=== PATIENT | female | born 1985 | race Caucasian/White ===

== ENCOUNTER 2018-01-18 20:46 | Emergency (ER) | payer SELFPAY ==
[~2018-01-18] VITALS: Ht 165.1 cm; Wt 83.0 kg
== END 2018-01-19 00:45 | disposition home or self-care (01) ==
LOC: ED 20:46
DX: G43.A0 Cyclical vomiting, in migraine, not intractable (principal)
CPT/HCPCS: 80053; 81001; 83690; 84703; 85025; 96374; 96375; 99283; J2060; J2405; J2550; J7030

== ENCOUNTER 2018-02-24 08:59 | Emergency (ER) | payer SELFPAY ==
[~2018-02-24] VITALS: Ht 165.1 cm; Wt 83.0 kg
[2018-02-24] MEDS ORDERED: PROMETHAZINE HC25 M1 PO (09:11)
[2018-02-24] MEDS ORDERED: PHENERGAN25 MG (09:11)
[2018-02-24] MEDS ORDERED: ZOFRAN ODT8 MG PO (10:31)
== END 2018-02-24 11:34 | disposition home or self-care (01) ==
LOC: ED 08:59
DX: R11.2 Nausea with vomiting, unspecified (principal)
CPT/HCPCS: 80053; 81001; 83690; 84703; 85025; 96361; 96374; 96375; 99283; J1200; J2060; J2405; J7030

== ENCOUNTER 2024-10-09 04:15 | Emergency (ER) | payer OTHER ==
[~2024-10-09] VITALS: Ht 165.1 cm; Wt 102.0 kg
[~2024-10-09 04:15] MED LIST: PHENERGAN25 MG; PROMETHAZINE HC25 M1 PO; ZOFRAN ODT8 MG PO
[2024-10-09] MEDS ORDERED: FAMOTIDINE 20 MG/ 2 ML VIAL IV ONE (04:30)
[2024-10-09] MEDS ORDERED: LACTATED RINGER'S 1,000 ML IV ONE (04:30)
[2024-10-09] MEDS ORDERED: droPERidol 5 MG/2 ML VIAL IV ONE (04:30)
[2024-10-09 04:38] LABS: BASOPHILS 0.5 % (0-2); EOSINOPHILS 0.3 % (0-6); HEMATOCRIT 47.4 % (35.0-50.0); HEMOGLOBIN 15.9 g/dL (12.0-18.0); LYMPHOCYTES 12.7 % (24-44); MCH 29.5 (27-36); MCHC 33.5 g/dl (30-36); MCV 88.1 fl (81-99); MONOCYTES 5.1 % (0-12); NEUTROPHILS 81.4 % (39-80); PLATELET COUNT 332 K/uL (140-440); RBC 5.39 M/ul (4.3-5.7); RDW 13.1 (10.5-15.0)
[2024-10-09 04:58] LABS: ALBUMIN 4.5 g/dL (3.4-5.0); ALCOHOL, MEDICAL <3 ng/dL (<3); ALKALINE PHOSPHATASE 49 U/L (46-116); ALT (SGPT) 17 U/L (14-59); ANION GAP 17.2 (7-21); AST (SGOT) 15 U/L (15-37); BILIRUBIN, TOTAL 0.7 ng/dL (0.2-1.0); BUN/CREATININE RATIO 15.59 (6.0-28.6); CALCIUM 10.1 mg/dL (8.5-10.1); CARBON DIOXIDE 28 mmol/L (21-32); CHLORIDE 97 mmol/L (98-107); CREATININE, SERUM 1.09 mg/dL (0.55-1.02); GLOMERULAR FILTRATION RATE,EST 66 mL/min (>60); POTASSIUM 3.2 mmol/L (3.5-5.1); UREA NITROGEN 17 mg/dL (7-18)
[2024-10-09 05:27] LABS: BILIRUBIN, URINE NEGATIVE (negative); BLOOD/HGB, URINE TRACE-I (Negative); KETONE, URINE SMALL (Negative); LEUK ESTERASE, URINE NEGATIVE (negative); NITRITE, URINE NEGATIVE (negative)
[2024-10-09 05:37] LABS: BACTERIA, URINE RARE /hpf (negative); CASTS, URINE NONE SEEN \\lpf; COLLECTION TYPE, URINE CLEAN CATCH; CRYSTALS, URINE AMORPHOUS URATES 1+ (0-1+); EPITHELIAL CELLS, URINE SQUAMOUS 2+ /lpf (0-1+); RED BLOOD CELLS, URINE 0-1 /hpf (0-5); REFLEX CULTURE, URINE No (No); WHITE BLOOD CELLS, URINE 0-1 /HPF (0-5)
[2024-10-09 05:43] LABS: AMPHETAMINES, URINE NEGATIVE (NEGATIVE); BARBITURATES, URINE NEGATIVE (NEGATIVE); BENZODIAZEPINE, URINE NEGATIVE (NEGATIVE); BUPRENORPHINE, URINE NEGATIVE (NEGATIVE); CANNABINOID, URINE POSITIVE (NEGATIVE); COCAINE, URINE NEGATIVE (NEGATIVE); ECSTASY, URINE NEGATIVE (NEGATIVE); FENTANYL, URINE NEGATIVE (NEGATIVE); METHADONE, URINE NEGATIVE (NEGATIVE); OPIATES, URINE NEGATIVE (NEGATIVE); OXYCODONE, URINE NEGATIVE (NEGATIVE); PHENCYCLIDINE, URINE NEGATIVE (NEGATIVE)
[2024-10-09 06:20] VITALS: BP 165/81
== END 2024-10-09 06:20 | disposition home or self-care (01) ==
LOC: ED 04:15
PROVIDERS: Internal Medicine
DX: R11.2 Nausea with vomiting, unspecified (principal); Z88.8 Allergy status to other drugs, medicaments and biological substances
CPT/HCPCS: 36415; 80053; 80307; 81001; 83690; 83735; 84484; 85025; 96374; 96375; 99284-25; G0480; J1790; J7121

== ENCOUNTER 2024-12-06 14:20 | Emergency (ER) | payer OTHER ==
[~2024-12-06] VITALS: Ht 165.1 cm; Wt 102.1 kg
[2024-12-06] MEDS ORDERED: HALOPERIDOL LACTATE 5 MG/ML VIAL IV ONE (15:15)
[2024-12-06] MEDS ORDERED: SODIUM CHLORIDE 0.9% 1,000 ML IV PRN (15:15)
[2024-12-06] MEDS ORDERED: KETOROLAC TROMETHAMINE 30 MG/ML VIAL IV ONE (15:30)
[2024-12-06 15:37] LABS: BASOPHILS 0.5 % (0-2); EOSINOPHILS 0.1 % (0-6); HEMATOCRIT 46.8 % (35.0-50.0); HEMOGLOBIN 15.9 g/dL (12.0-18.0); LYMPHOCYTES 15.8 % (24-44); MCH 29.7 (27-36); MCHC 33.9 g/dl (30-36); MCV 87.4 fl (81-99); MONOCYTES 5.4 % (0-12); NEUTROPHILS 78.2 % (39-80); PLATELET COUNT 282 K/uL (140-440); RBC 5.35 M/ul (4.3-5.7); RDW 13.2 (10.5-15.0)
[2024-12-06 15:49] LABS: ALBUMIN 4.3 g/dL (3.4-5.0); ALBUMIN/GLOBULIN RATIO 1.1 (1.1-2.4); ANION GAP 15.5 (7-21); BILIRUBIN, TOTAL 0.6 mg/dL (0.2-1.0); BUN/CREATININE RATIO 20.65 (6.0-28.6); CALCIUM 9.5 mg/dL (8.5-10.1); CREATININE, SERUM 0.92 mg/dL (0.55-1.02); POTASSIUM 3.5 mmol/L (3.5-5.1); PROTEIN, TOTAL 8.2 g/dL (6.4-8.2)
[2024-12-06 16:36] LABS: BILIRUBIN, URINE POSITIVE (negative); BLOOD/HGB, URINE LARGE (Negative); KETONE, URINE SMALL (Negative); LEUK ESTERASE, URINE NEGATIVE (negative); NITRITE, URINE NEGATIVE (negative)
[2024-12-06 16:43] LABS: BACTERIA, URINE 2+ /hpf (negative); CASTS, URINE NONE SEEN \\lpf; COLLECTION TYPE, URINE CLEAN CATCH; CRYSTALS, URINE NONE SEEN (0-1+); EPITHELIAL CELLS, URINE SQUAMOUS 3+ /lpf (0-1+); REFLEX CULTURE, URINE No (No)
[2024-12-06] MEDS ORDERED: FAMOTIDINE 20 MG/ 2 ML VIAL IV ONE (16:45)
[2024-12-06 17:11] VITALS: BP 157/62
== END 2024-12-06 17:13 | disposition home or self-care (01) ==
LOC: ED 14:20
PROVIDERS: Emergency Medicine
DX: R11.15 Cyclical vomiting syndrome unrelated to migraine (principal); Z88.8 Allergy status to other drugs, medicaments and biological substances; Z79.899 Other long term (current) drug therapy
CPT/HCPCS: 36415; 80053; 81001; 83690; 84703; 85025; 87088; 96374; 96375; 99284-25; J1630; J1885; J7030